=== PATIENT | female | born 1980 | race Caucasian/White ===

== ENCOUNTER 2021-10-30 10:23 | Emergency (ER) | payer BC, OTHER ==
[2021-10-30] MEDS ORDERED: BENADRYL 50 MG/ML IM ONE (11:35)
[2021-10-30] MEDS ORDERED: TORAdol 30 mg Injection IM ONE (11:35)
[2021-10-30] MEDS ORDERED: Reglan 10 MG/2 ML IM ONE (11:36)
[2021-10-30] MEDS ORDERED: TORAdol 30 mg Injection ONE (11:41)
[2021-10-30] MEDS ORDERED: BENADRYL 50 MG/ML ONE (11:41)
[2021-10-30] MEDS ORDERED: Reglan 10 MG/2 ML ONE (11:41)
[2021-10-30 12:22] LABS: INFLUENZA A NEGATIVE (NEGATIVE); INFLUENZA B NEGATIVE (NEGATIVE); RESPIRATORY SYNCTIAL VIRUS NEGATIVE (Negative); SARS-CoV-2 Xpert Express NEGATIVE (NEGATIVE)
--- NOTE | 2021-10-30 12:37 | ERPHSYRPT ---
- History of Present Illness Time Seen by Provider: 10/30/21 11:30 Source: patient Exam Limitations: no limitations Patient Subjective Stated Complaint: C/O Headache for 3 days. Triage Nursing Assessment: Patient ambulated back to ED without difficulties. NO SOB. Patient is alert and oriented and answering questions appropriately. Physician History: Patient is a 41-year-old white female who presents with a global headache for 3 days. She has a history of migraines in the past which she treats with home medication she also has had an earache she had an episode of near syncope earlier today with her headache. She is concerned about COVID. Timing/Duration: day(s) (3) Quality: throbbing Head Pain Location: global Severity of Pain-Max: moderate Severity of Pain-Current: mild Recent Head Trauma: frequent headaches Modifying Factors: Improves With: cold therapy, exposure to light, noise Previous symptoms: same symptoms as today Allergies/Adverse Reactions: No Known Drug Allergies Allergy (Verified 10/30/21 11:18) Home Medications: Buspirone HCl 5 mg [Buspar 5 mg] 10 mg PO BID 10/30/21 [History] Carvedilol 12.5 mg [Coreg 12.5 mg] 1 tab PO BID 10/30/21 [History] Duloxetine HCl 30 mg [Cymbalta 30 MG Capsule] 1 cap PO DAILY 10/30/21 [History] Liothyronine Sodium 1 tab PO DAILY 10/30/21 [History] Losartan Potassium 50 mg [Cozaar 50 MG] 1 tab PO DAILY 10/30/21 [History] Meloxicam 15 mg [Meloxicam 15 MG] 1 tab PO DAILY 10/30/21 [History] Pantoprazole 20 mg [Protonix 20MG Tablet] 1 tab PO DAILY 10/30/21 [History] Spironolactone 25 mg [Aldactone 25 MG] 1 tab PO DAILY 10/30/21 [History] Sumatriptan Succinate 25 mg [Imitrex 25 MG] 50 mg PO DAILY PRN 10/30/21 [History] Topiramate [Topiramate ER] 1 tab PO DAILY 10/30/21 [History] Hx Tetanus, Diphtheria Vaccination/Date Given: Yes Hx Influenza Vaccination/Date Given: No Hx Pneumococcal Vaccination/Date Given: No Immunizations Up to Date: Yes Travel Risk - International Travel Have you traveled outside of the country in past 3 weeks: No - Coronavirus Screening Are you exhibiting any of the following symptoms?: Yes Symptoms: Headaches/Body Aches/Fatigue Close contact with a COVID-19 positive Pt in past 14-21 Days: No - Vaccine Status Have you recieved a Covid-19 vaccination: No - Review of Systems Constitutional: No Fever, No Chills Eyes: Photophobia Ears, Nose, & Throat: Ear Pain Respiratory: No Cough, No Dyspnea Cardiac: No Chest Pain, No Edema, No Syncope Abdominal/Gastrointestinal: No Abdominal Pain, No Nausea, No Vomiting, No Diarrhea Genitourinary Symptoms: No Dysuria Musculoskeletal: No Back Pain, No Neck Pain Skin: No Rash Neurological: Headache, No Dizziness, No Focal Weakness, No Sensory Changes Psychological: No Symptoms Endocrine: No Symptoms All Other Systems: Reviewed and Negative - Past Medical History Pertinent Past Medical History: Yes Cardiac History: Hypertension Endocrine Medical History: Hypothyroidism GI Medical History: GERD, Gallbladder Disease Psycho-Social History: Anxiety, Depression - Past Surgical History Past Surgical History: Yes Cardiac: Internal Defibrillator Gastrointestinal: Cholecystectomy - Social History Smoking Status: Never smoker Exposure to second hand smoke: No Drug Use: none - Female History Hx Last Menstrual Period: Yesterday Hx Now: No - Nursing Vital Signs Nursing Vital Signs: Initial Vital Signs Temperature 97.5 F 10/30/21 11:24 Pulse Rate 70 10/30/21 11:24 Respiratory Rate 17 10/30/21 11:24 Blood Pressure 124/74 10/30/21 11:24 O2 Sat by Pulse Oximetry 99 10/30/21 11:24 Pain Scale Pain Intensity 8 - Physical Exam General Appearance: mild distress Eye Exam: PERRL/EOMI Ears, Nose, Throat Exam: normal ENT inspection, moist mucous membranes Neck Exam: normal inspection, supple, full range of motion, No meningismus Respiratory Exam: normal breath sounds, lungs clear Cardiovascular Exam: regular rate/rhythm, normal heart sounds Gastrointestinal/Abdominal Exam: soft, No tenderness, No distention Back Exam: normal inspection, normal range of motion Mental Status Exam: alert, oriented x 3, cooperative relief man Exam: normal speech, PERRL, No facial droop Coordination/Gait Exam: normal cerebellar function Motor/Sensory Exam: no motor deficit, no sensory deficit Skin Exam: normal color, warm, dry, No rash SpO2: 99 - Course Nursing assessment & vital signs reviewed: Yes Ordered Tests: Medication Summary Discontinued Medications Generic Name Dose Route Start Last Admin Trade Name Chevy PRN Reason Stop Dose Admin Diphenhydramine HCl 25 mg 10/30/21 11:35 10/30/21 11:43 Diphenhydramine Hcl 50 Mg/Ml Vial IM 10/30/21 11:36 25 mg STAT ONE Administration Diphenhydramine HCl Confirm 10/30/21 11:41 Diphenhydramine Hcl 50 Mg/Ml Vial Administered 10/30/21 11:42 Dose 50 mg .ROUTE .STK-MED ONE Ketorolac Tromethamine 30 mg 10/30/21 11:35 10/30/21 11:43 Ketorolac Tromethamine 30 Mg/Ml Inj IM 10/30/21 11:36 30 mg STAT ONE Administration Ketorolac Tromethamine Confirm 10/30/21 11:41 Ketorolac Tromethamine 30 Mg/Ml Inj Administered 10/30/21 11:42 Dose 30 mg .ROUTE .STK-MED ONE Metoclopramide HCl 10 mg 10/30/21 11:36 10/30/21 11:44 Metoclopramide Hcl 10 Mg/2 Ml Vial IM 10/30/21 11:37 10 mg STAT ONE Administration Metoclopramide HCl Confirm 10/30/21 11:41 Metoclopramide Hcl 10 Mg/2 Ml Vial Administered 10/30/21 11:42 Dose 10 mg .ROUTE .STK-MED ONE Lab/Rad Data: Laboratory Results 10/30/21 Range/Units 11:44 Influenza Type A Ag NEGATIVE (NEGATIVE) Influenza Type B Ag NEGATIVE (NEGATIVE) RSV (PCR) NEGATIVE (Negative) SARS-CoV-2 (PCR) NEGATIVE (NEGATIVE) - Progress Progress: improved Air Movement: good Blood Culture(s) Obtained: No Antibiotics given: No - Departure Departure Disposition: Home Clinical Impression: Migraine headache Condition: Stable Critical Care Time: No Referrals: JASMYNE SALTER NP [Primary Care Provider] - Follow up/PCP as directed Instructions: Headache, Adult (DC)
[2021-10-30 13:15] VITALS: BP 120/57; PULSE 67; O2SAT 98
== END 2021-10-30 13:15 | disposition home or self-care (01) ==
LOC: ED 10:23
DX: G43.909 Migraine, unspecified, not intractable, without status migrainosus (principal); R55 Syncope and collapse; I10 Essential (primary) hypertension; Z79.899 Other long term (current) drug therapy; Z28.310 Unvaccinated for COVID-19
CPT/HCPCS: 0241U; 96372; 99283; J1200; J1885